=== PATIENT | male | born 1990 | race Caucasian/White ===

== ENCOUNTER 2024-10-15 18:16 | Emergency (ER) | payer BC ==
[~2024-10-15] VITALS: Ht 180.3 cm; Wt 77.1 kg
[2024-10-15 18:21] VITALS: BP 124/81; TEMP 98.3
[2024-10-15] MEDS ORDERED: POLY17PO4 PO (19:33)
[2024-10-15] MEDS ORDERED: KETOROLAC TROMETHAMINE INJ 30 MG/ML VIAL ONE (19:41)
[2024-10-15] MEDS: KETOROLAC TROMETHAMINE INJ 30 MG/ML VIAL IM ONE (19:51)
[2024-10-15 20:45] LABS: APPEARANCE,URINE CLEAR (CLEAR); BILIRUBIN,URINE NEGATIVE (NEGATIVE); BLOOD, URINE NEGATIVE Ery/uL (NEGATIVE); COLOR,URINE OTHER (YELLOW); KETONES,URINE NEGATIVE (NEGATIVE); LEUKOCYTE ESTERASE ,URINE NEGATIVE (NEGATIVE); NITRITE, URINE NEGATIVE (NEGATIVE); PROTEIN,URINE NEGATIVE (NEGATIVE); UGLUCOSE NEGATIVE (NEGATIVE); UROBILINOGEN,URINE 0.2 EU/dL (0.2)
[2024-10-15 21:24] VITALS: O2SAT 97
[2024-10-17 23:10] LABS: CHLAMYDIA TRACHOMATIS NAA Negative (Negative); NEISSERIA GONORRHOEAE NAA Negative (Negative)
== END 2024-10-15 21:25 | disposition home or self-care (01) ==
LOC: ER 18:25
DX: G89.29 Other chronic pain (principal); M54.50 Low back pain, unspecified; R33.8 Other retention of urine; K59.00 Constipation, unspecified
CPT/HCPCS: 99283; 96372; 81003; 87491; 87591; J1885